=== PATIENT | female | born 1950 | race Caucasian/White ===

== ENCOUNTER 2025-03-26 10:22 | Inpatient (IN) | payer MEDICARE ==
[2025-03-19 10:28] VITALS: BMI 30.2
[2025-03-26] MEDS ORDERED: Vancomycin HCl 1.5 GM VIAL ONE (10:37)
[2025-03-26] MEDS ORDERED: CEFAZOLIN 2 GM VIAL ONE (10:37)
[2025-03-26] MEDS ORDERED: Tranexamic Acid 1,000 MG/10 ML VIAL ONE (10:37)
[2025-03-26] MEDS ORDERED: Bupivacaine 0.25% HCL 30 ML VIAL ONE (11:51)
[2025-03-26] MEDS ORDERED: Ropivacaine 0.5% HCl/PF (150 MG/30 ML VIAL) ONE (11:53)
[2025-03-26] MEDS ORDERED: Ropivacaine 0.2% 550 ML 550 ML NERVE BLCK SCH (12:30)
[2025-03-26] MEDS ORDERED: Ondansetron PF 4 MG/2 ML Vial IVP PRN (12:30)
[2025-03-26] MEDS ORDERED: PROPOFOL 20 ML ONE (12:56)
[2025-03-26] MEDS ORDERED: PHENYLEPHRINE-NS 100 MCG/ML 10 ML SYRINGE ONE (12:56)
[2025-03-26] MEDS ORDERED: fentaNYL PF 100 MCG/2 ML SYRINGE ONE (13:12)
[2025-03-26] MEDS ORDERED: Ondansetron PF 4 MG/2 ML Vial ONE (13:21)
[2025-03-26] MEDS ORDERED: Lidocaine 1% PF 5 ML VIAL ONE (13:21)
[2025-03-26] MEDS ORDERED: diphenhydrAMINE 25 MG CAP PO PRN (14:30)
[2025-03-26] MEDS ORDERED: Acetaminophen 325 MG TAB PO PRN (14:30)
[2025-03-26] MEDS: Ketorolac Tromethamine 30 MG (1 mL) VIAL IVP SCH (18:35)
[2025-03-26] MEDS: Ondansetron PF 4 MG/2 ML Vial IVP PRN (18:35)
[2025-03-26] MEDS: metFORMIN 500 MG TAB PO SCH (18:36)
[2025-03-26] MEDS: Aspirin 81 mg Enteric Coated Tablet PO SCH (20:19)
[2025-03-26] MEDS: Ferrous Gluconate 324 MG TAB PO SCH (20:19)
[2025-03-26] MEDS: Senokot S 8.6-50 MG TAB PO SCH (20:19)
[2025-03-27 05:14] LABS: Hematocrit 26.7 % (36.0-47.0); Hemoglobin 8.7 g/dL (12.0-16.0); Mean Corpuscular Hemoglobin 29.3 pg (27.0-31.0); Mean Corpuscular Volume 89.9 fL (78.0-98.0); Platelet Count 129 10x3/uL (130-400); Red Blood Cell (RBC) Count 2.97 mill/uL (4.20-5.40); White Blood Cell (WBC) Count 4.49 10x3/uL (4.8-10.8)
[2025-03-27] MEDS: Multivitamin W/ Minerals 1 TAB PO SCH (10:21)
[2025-03-27] MEDS: Lisinopril 20 MG TAB PO SCH (10:22)
[2025-03-27] MEDS: Rosuvastatin 20 MG TAB PO SCH (10:23)
[2025-03-28 05:38] LABS: Hematocrit 24.2 % (36.0-47.0); Hemoglobin 7.9 g/dL (12.0-16.0); Mean Corpuscular Hemoglobin 29.7 pg (27.0-31.0); Mean Corpuscular Volume 91.0 fL (78.0-98.0); Platelet Count 119 10x3/uL (130-400); Red Blood Cell (RBC) Count 2.66 mill/uL (4.20-5.40); White Blood Cell (WBC) Count 4.82 10x3/uL (4.8-10.8)
[2025-03-29 05:22] LABS: Hematocrit 24.0 % (36.0-47.0); Hemoglobin 7.9 g/dL (12.0-16.0); Mean Corpuscular Hemoglobin 29.9 pg (27.0-31.0); Mean Corpuscular Volume 90.9 fL (78.0-98.0); Platelet Count 122 10x3/uL (130-400); Red Blood Cell (RBC) Count 2.64 mill/uL (4.20-5.40); White Blood Cell (WBC) Count 4.83 10x3/uL (4.8-10.8)
[2025-03-30] MEDS: HYDROcodone/Acetaminophen 10/325 mg Tablet PO PRN ×2 (08:43→17:26)
[2025-03-31 08:52] VITALS: BP 146/75; TEMP 98.2
== END 2025-03-31 08:53 | disposition home or self-care (01) | DRG 470 ==
LOC: SDC 10:22 → SURG A 16:07 → OBSVTOIN 03-27 11:56
PROVIDERS: ADMIT Orthopaedic Surgery; ATTEND Orthopaedic Surgery
PROC: 0SRC0J9 Replacement of Right Knee Joint with Synthetic Substitute, Cemented, Open Approach (ICD-10-PCS; principal; 2025-03-26)
DX: M17.11 Unilateral primary osteoarthritis, right knee (principal); D62 Acute posthemorrhagic anemia; E78.00 Pure hypercholesterolemia, unspecified; E11.9 Type 2 diabetes mellitus without complications; I10 Essential (primary) hypertension; Z79.899 Other long term (current) drug therapy
CPT/HCPCS: 36415; 36416; 85027; A4306; C1713; C1776; C1889; J0665; J1100; J1885; J2250; J2405; J2704; J2795; J3010; J7030